=== PATIENT | male | born 1990 | race Caucasian/White ===

== ENCOUNTER 2020-03-27 15:11 | Emergency (ER) | payer MEDICAID ==
[2020-03-27 15:33] VITALS: BP 125/75
--- NOTE | 2020-03-27 15:54 | ED Physician Documentation ---
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 No URI complaints. No fevers.) Review of Systems Constitutional: reports: Reviewed and negative Eyes: reports: Reviewed and negative Ears: reports: Reviewed and negative Nose: reports: Reviewed and negative Throat: reports: Reviewed and negative PD PAST MEDICAL HISTORY - Past Medical History Past Medical History: No - Past Surgical History Past Surgical History: No - Present Medications Home Medications: Ambulatory Orders Medication Instructions Recorded Confirmed No Known Home Medications 03/27/20 03/27/20 - Allergies Allergies/Adverse Reactions: Allergies Allergy/AdvReac Type Severity Reaction Status Date / Time No Known Drug Allergies Allergy Verified 03/27/20 15:34 - Social History Does the pt smoke?: No Smoking Status: Never smoker Does the pt drink ETOH?: No Does the pt have substance abuse?: No - Immunizations Immunizations are current?: Yes - POLST Patient has POLST: No PD ED PE NORMAL - Vitals Vital signs reviewed: Yes - General General: Alert and oriented X 3, No acute distress - HEENT HEENT: Other (On initial evaluation the right TM is occluded by cerumen. After irrigation it was normal. No mastoid tenderness.) - Neck Neck: Supple, no meningeal sign, No bony TTP - Neuro Neuro: Alert and oriented X 3, Normal speech Results - Vitals Vitals: Vital Signs - 24 hr 03/27/20 15:31 Temperature 37.0 C Heart Rate 66 Respiratory 18 Rate Blood Pressure 125/75 O2 Saturation 99 Oxygen O2 Source Room air Procedures - General procedure General procedure: Right ear cerumen was removed with syringe irrigation with success and resol ution of sx. Departure - Departure Disposition: 01 Home, Self Care Clinical Impression: Impacted cerumen of right ear Condition: Good Record reviewed to determine appropriate education?: Yes Instructions: ED Earwax Removal
== END 2020-03-27 15:56 | disposition home or self-care (01) ==
LOC: ED 15:11
DX: H61.21 Impacted cerumen, right ear (principal)
CPT/HCPCS: 69209; 99281; 99283